=== PATIENT | female | born 1960 | race Caucasian/White ===

== ENCOUNTER 2016-09-10 13:04 | Outpatient (CLI) | payer OTHER | END 2016-09-10 13:05 | disposition home or self-care (01) | DX: N39.0 Urinary tract infection, site not specified (principal) ==

== ENCOUNTER 2017-05-09 08:00 | Outpatient (CLI) | payer OTHER | END 2017-05-09 08:01 | disposition home or self-care (01) | LOC: LAB.R 08:00 | PROVIDERS: ATTEND Physician Assistant Medical | DX: N39.0 Urinary tract infection, site not specified (principal) | CPT/HCPCS: 87086 ==

== ENCOUNTER 2019-04-16 09:17 | Outpatient (CLI) | payer OTHER ==
--- NOTE | 2019-04-16 09:50 | XRAY Report ---
Reason: RIGHT WRIST JOINT PAIN Procedure Date: 04/16/2019 Accession Number: [id number] / [id number] Procedure: WCP - Wrist 3 View RT CPT Code: Final Report FULL RESULT: EXAM: RIGHT WRIST RADIOGRAPHY EXAM DATE: 04/16/2019 09:17 AM. CLINICAL HISTORY: Right wrist joint pain, post injury on 04/02/2019. COMPARISON: None. TECHNIQUE: 3 views. FINDINGS: Bones: No fractures or bone lesions. Joints: No significant degenerative process. No subluxations. Soft Tissues: There is mild dorsal wrist soft tissue swelling. IMPRESSION: Negative for fracture, bony injury or subluxation in the right wrist radiography. [facility]
== END 2019-04-16 23:59 | disposition home or self-care (01) ==
LOC: DI.WCP 09:17
PROVIDERS: ATTEND Physician Assistant
DX: M25.531 Pain in right wrist (principal)

== ENCOUNTER 2019-11-22 08:30 | Outpatient (CLI) | payer OTHER | END 2019-11-22 23:59 | disposition home or self-care (01) | LOC: LAB.WCP 08:30 | PROVIDERS: ATTEND Physician Assistant Medical | DX: N39.0 Urinary tract infection, site not specified (principal) | CPT/HCPCS: 87086; 87181 ==

== ENCOUNTER 2019-12-05 07:00 | Outpatient (CLI) | payer OTHER | END 2019-12-05 23:59 | disposition home or self-care (01) | LOC: LAB.R 07:00 | PROVIDERS: ATTEND Physician Assistant Medical | DX: N39.0 Urinary tract infection, site not specified (principal) | CPT/HCPCS: 87086 ==

== ENCOUNTER 2019-12-11 14:23 | Outpatient (CLI) | payer OTHER | END 2019-12-11 23:59 | disposition home or self-care (01) | LOC: LAB.R 14:23 | PROVIDERS: ATTEND Physician Assistant Medical | DX: N39.0 Urinary tract infection, site not specified (principal) | CPT/HCPCS: 87086 ==

== ENCOUNTER 2020-01-15 08:00 | Outpatient (CLI) | payer OTHER ==
[2020-01-15 18:48] LABS: CREATININE,URINE 112.4 mg/dL; MICROALBUM/CREATININE RATIO,UR 5.3 ug/mg (<30.0); MICROALBUMIN,URINE 0.6 mg/dL (0-300.0)
== END 2020-01-15 23:59 | disposition home or self-care (01) ==
LOC: LAB.R 08:00
PROVIDERS: ATTEND Physician Assistant Medical
DX: E10.9 Type 1 diabetes mellitus without complications (principal)
CPT/HCPCS: 82043; 82570

== ENCOUNTER 2020-07-11 08:00 | Outpatient (CLI) | payer OTHER ==
[2020-07-11 12:43] LABS: ESTIMATED AVERAGE GLUCOSE 186 mg/dL (70-100); HEMOGLOBIN A1c% 8.1 % (4.27-6.07)
[2020-07-11 13:47] LABS: ALBUMIN 4.1 g/dL (3.2-5.5); ALBUMIN/GLOBULIN RATIO 1.6 (1.0-2.2); ALKALINE PHOSPHATASE 58 IU/L (42-121); ALT ALANINE AMINOTRANSFERASE 24 IU/L (10-60); AST ASPARTATE AMINOTRANSFERASE 22 IU/L (10-42); BILIRUBIN,TOTAL 0.9 mg/dL (0.2-1.0); BUN - BLOOD UREA NITROGEN 15 mg/dL (6-20); CALCIUM 9.2 mg/dL (8.5-10.3); CARBON DIOXIDE - CO2 28 mmol/L (21-32); CHLORIDE 103 mmol/L (101-111); CHOL/HDL RATIO 2.4 (<4.4); CHOLESTEROL 192 mg/dL; CREATININE 0.8 mg/dL (0.4-1.0); GFR - MDRD 74 (>89); GLUCOSE 100 mg/dL (70-100); HDL CHOLESTEROL 79 mg/dL; LDL CHOLESTEROL,CALCULATED 97 mg/dL; LDL/HDL RATIO 1.2 (<4.4); POTASSIUM 4.2 mmol/L (3.5-5.0); SODIUM 139 mmol/L (135-145); TOTAL PROTEIN 6.6 g/dL (6.7-8.2); TRIGLYCERIDES 80 mg/dL; VLDL CHOLESTEROL 16 mg/dL
[2020-07-11 13:54] LABS: THYROID STIMULATING HORMONE 3.85 uIU/mL (0.34-5.60)
== END 2020-07-11 23:59 | disposition home or self-care (01) ==
LOC: LAB.WCP 08:00
PROVIDERS: ATTEND Physician Assistant Medical
DX: E10.9 Type 1 diabetes mellitus without complications (principal)
CPT/HCPCS: 36415; 80053; 80061; 83036; 83721; 84443

== ENCOUNTER 2020-07-21 14:11 | Outpatient (CLI) | payer OTHER ==
--- NOTE | 2020-07-21 17:26 | DEXA Report ---
PROCEDURE: Dexa Spine and/or Hip INDICATIONS: POST MENOPAUSAL TECHNIQUE: Dual energy x-ray absorptiometry (DXA) was performed on a [employer] System. Regions measur ed are the AP Spine, femoral neck, and if needed forearm. COMPARISON: None. FINDINGS: Lumbar Spine: Bone Mineral Density 0.839 g/cm/cm,T score -2.8, osteoporosis Left Hip: Bone Mineral Density 0.681 g/cm/cm,T score -2.6, osteoporosis Left Femoral Neck: Bone Mineral Density 0.667 g/cm/cm, T score -2.7, osteoporosis (T score greater or equal to -1.0: NORMAL) (T score from -1.1 to -2.4: OSTEOPENIA) (T score less than or equal to -2.5 to: OSTEOPOROSIS) Impression: Osteoporosis. Patients with diagnosis of osteoporosis or osteopenia should have regular bone mineral density assess ment. For those eligible for Medicare, routine testing is allowed once every 2 years. Testing frequ ency can be increased for patients who have rapidly progressing disease or for those who are receivin g medical therapy to restore bone mass. Reviewed by: Elva Gaviria MD, PhD on 07/21/2020 5:25 PM PDT Approved by: Elva Gaviria MD, PhD on 07/21/2020 5:25 PM PDT Station ID: [id number]
== END 2020-07-21 14:12 | disposition home or self-care (01) ==
LOC: DI 14:11
PROVIDERS: ATTEND Physician Assistant Medical
DX: M81.0 Age-related osteoporosis without current pathological fracture (principal)

== ENCOUNTER 2020-10-22 09:03 | Outpatient (CLI) | payer OTHER ==
--- NOTE | 2020-10-22 10:09 | XRAY Report ---
PROCEDURE: Wrist 4 View LT INDICATIONS: L WRIST PX TECHNIQUE: 4 views of the wrist were acquired. COMPARISON: None FINDINGS: Bones: There is a suspected mildly impacted fracture of the distal left radius. Background degenerat roshan changes of the left wrist. There is mild cortical irregularity of the dorsal left wrist with over lying soft tissue swelling. This suggests a dorsal triquetral fracture. No suspicious bony lesions. Scaphoid view: Visualized scaphoid appears intact. Scapholunate interval is maintained. Soft tissues: No suspicious soft tissue calcifications. IMPRESSION: 1. Suspected mildly impacted fracture of the distal left radius. 2. Possible dorsal triquetral fracture. 3. Visualized scaphoid appears intact. If there is persistent clinical concern for occult scaphoid fracture, recommend immobilization and re peat imaging in 10-14 days. Reviewed by: Yovani Hutchison MD on 10/22/2020 10:07 AM PDT Approved by: Yovani Hutchison MD on 10/22/2020 10:07 AM PDT Station ID: [id number]
== END 2020-10-22 09:04 | disposition home or self-care (01) ==
LOC: DI.N 09:03
PROVIDERS: ATTEND Physician Assistant Medical
DX: R93.6 Abnormal findings on diagnostic imaging of limbs (principal)

== ENCOUNTER 2021-02-25 08:00 | Outpatient (CLI) | payer OTHER | END 2021-02-25 23:59 | disposition home or self-care (01) | LOC: LAB.N 08:00 | PROVIDERS: ATTEND Physician Assistant | DX: R30.0 Dysuria (principal) | CPT/HCPCS: 87086; 87181 ==

== ENCOUNTER 2021-02-28 08:00 | Outpatient (CLI) | payer OTHER | END 2021-02-28 23:59 | disposition home or self-care (01) | LOC: LAB.N 08:00 | PROVIDERS: ATTEND Family Medicine | DX: R30.0 Dysuria (principal) | CPT/HCPCS: 87086 ==

== ENCOUNTER 2021-03-11 08:00 | Outpatient (CLI) | payer OTHER | END 2021-03-11 23:59 | LOC: LAB 08:00 | PROVIDERS: ATTEND Physician Assistant | DX: N39.0 Urinary tract infection, site not specified (principal) | CPT/HCPCS: 87086; 87181 ==

== ENCOUNTER 2023-03-18 09:51 | Outpatient (CLI) | payer OTHER ==
--- NOTE | 2023-03-18 17:32 | DEXA Report ---
PROCEDURE: Dexa Spine and/or Hip INDICATIONS: POST MENOPAUSAL TECHNIQUE: Dual energy x-ray absorptiometry (DXA) was performed on a [employer] System. Regions measur ed are the AP Spine, femoral neck, and if needed forearm. COMPARISON: DEXA 07/21/2020 FINDINGS: Lumbar Spine: Bone Mineral Density 0.877 g/cm/cm,T score -2.5, compared to -2.8. Left Femoral Neck: Bone Mineral Density 0.663 g/cm/cm, T score -2.7, unchanged. Left Hip: Bone Mineral Density 0.71 g/cm/cm,T score -2.3, compared to -2.6. (T score greater or equal to -1.0: NORMAL) (T score from -1.1 to -2.4: OSTEOPENIA) (T score less than or equal to -2.5 to: OSTEOPOROSIS) Impression: By WHO criteria, this patient has osteoporosis most severe in the femoral neck unchanged. There is mi ld improved bone mineral density within the lumbar spine as well as left hip although still remaining osteoporotic/osteopenic. Patients with diagnosis of osteoporosis or osteopenia should have regular bone mineral density assess ment. For those eligible for Medicare, routine testing is allowed once every 2 years. Testing frequ ency can be increased for patients who have rapidly progressing disease or for those who are receivin g medical therapy to restore bone mass. Reviewed by: Ofelia Caceres MD on 03/18/2023 5:31 PM PST Approved by: Ofelia Caceres MD on 03/18/2023 5:31 PM PST Station ID: [id number]
== END 2023-03-18 09:52 | disposition home or self-care (01) ==
LOC: DI 09:51
PROVIDERS: ATTEND Physician Assistant Medical
DX: Z78.0 Asymptomatic menopausal state (principal); M81.0 Age-related osteoporosis without current pathological fracture

== ENCOUNTER 2023-08-08 12:48 | Outpatient (CLI) | payer OTHER ==
--- NOTE | 2023-08-09 00:27 | XRAY Report ---
PROCEDURE: Tib/Fib LT INDICATIONS: LEFT LEG PAIN TECHNIQUE: 2 views of the tibia and fibula were acquired. COMPARISON: None. FINDINGS: Bones: No fractures or dislocations. No suspicious bony lesions. Tibial julio and pin fixation is p resent. Hardware is intact without evidence of hardware fracture or periprosthetic lucency to suggest loosening. Distal tibial fracture shaft lucencies remain visible. Healing fracture with near anatomi c alignment is present in the distal fibular shaft. Soft tissues: No suspicious soft tissue calcifications or masses. IMPRESSION: Tibial fixation with healing fractures of the distal tibia and fibula shafts. Reviewed by: Ofelia Caceres MD on 08/09/2023 12:26 AM PDT Approved by: Ofelia Caceres MD on 08/09/2023 12:26 AM PDT Station ID: [id number]
== END 2023-08-08 12:49 | disposition home or self-care (01) ==
LOC: DI 12:48
PROVIDERS: ATTEND Orthopaedic Surgery
DX: S82.832D Other fracture of upper and lower end of left fibula, subsequent encounter for closed fracture with routine healing (principal); S82.302D Unspecified fracture of lower end of left tibia, subsequent encounter for closed fracture with routine healing

== ENCOUNTER 2023-08-22 10:08 | Outpatient (CLI) | payer OTHER ==
[2023-08-22 10:43] LABS: ESTIMATED AVERAGE GLUCOSE 212 mg/dL (70-100)
[2023-08-22 10:55] LABS: ALBUMIN 4.5 g/dL (3.2-5.5); ALBUMIN/GLOBULIN RATIO 1.6 (1.0-2.2); ALKALINE PHOSPHATASE 76 IU/L (42-121); ALT ALANINE AMINOTRANSFERASE 20 IU/L (10-60); AST ASPARTATE AMINOTRANSFERASE 21 IU/L (10-42); BILIRUBIN,TOTAL 0.4 mg/dL (0.2-1.0); BUN - BLOOD UREA NITROGEN 11 mg/dL (6-20); CALCIUM 9.9 mg/dL (8.5-10.3); CARBON DIOXIDE - CO2 28 mmol/L (21-32); CHLORIDE 104 mmol/L (101-111); CHOL/HDL RATIO 2.3 (<4.4); CHOLESTEROL 163 mg/dL; CREATININE 0.9 mg/dL (0.6-1.3); GFR - MDRD 64 (>89); GLUCOSE 187 mg/dL (74-104); HDL CHOLESTEROL 70 mg/dL; LDL CHOLESTEROL,CALCULATED 72 mg/dL; POTASSIUM 4.3 mmol/L (3.5-4.5); SODIUM 138 mmol/L (135-145); TOTAL PROTEIN 7.3 g/dL (6.4-8.9); TRIGLYCERIDES 104 mg/dL (48-352); VLDL CHOLESTEROL 21 mg/dL
== END 2023-08-22 10:09 | disposition home or self-care (01) ==
LOC: LAB 10:08
PROVIDERS: ATTEND Physician Assistant Medical
DX: E10.9 Type 1 diabetes mellitus without complications (principal)
CPT/HCPCS: 36415; 80053; 80061; 83036; 83721

== ENCOUNTER 2023-10-03 11:06 | Outpatient (CLI) | payer OTHER ==
--- NOTE | 2023-10-03 13:34 | XRAY Report ---
PROCEDURE: Tib/Fib LT INDICATIONS: FRACTURE OF SHAFT OF LEFT TIBIA TECHNIQUE: 2 views of the tibia and fibula were acquired. COMPARISON: 08/08/2023. FINDINGS: Bones: Tibial intramedullary julio bridging a oblique distal shaft fracture. No evidence of hardware f ailure or loosening. Definite interval progress in healing of the known distal radial and distal ulna r shaft fractures. They both now have relatively mature bridging callus formation. No suspicious bony lesions. Soft tissues: No suspicious soft tissue calcifications or masses. IMPRESSION: Expected appearance of orthopedic surgical hardware. Significant interval progression of healing Reviewed by: Reagan Montes De Oca MD on 10/03/2023 1:33 PM PDT Approved by: Reagan Montes De Oca MD on 10/03/2023 1:33 PM PDT Station ID: [id number]
== END 2023-10-03 11:07 | disposition home or self-care (01) ==
LOC: DI 11:06
PROVIDERS: ATTEND Orthopaedic Surgery
DX: S82.202D Unspecified fracture of shaft of left tibia, subsequent encounter for closed fracture with routine healing (principal)

== ENCOUNTER 2023-11-21 08:28 | Outpatient (CLI) | payer OTHER ==
[2023-11-21 09:04] LABS: CALCIUM 9.3 mg/dL (8.5-10.3); CREATININE 0.8 mg/dL (0.6-1.3)
[2023-11-21 11:16] LABS: ESTIMATED AVERAGE GLUCOSE 220 mg/dL (70-100); HEMOGLOBIN A1c% 9.3 % (4.27-6.07)
== END 2023-11-21 08:29 | disposition home or self-care (01) ==
LOC: LAB 08:28
PROVIDERS: ATTEND Physician Assistant Medical
DX: E10.9 Type 1 diabetes mellitus without complications (principal)
CPT/HCPCS: 36415; 80048; 83036